=== PATIENT | female | born 1995 | race Caucasian/White ===

== ENCOUNTER 2018-08-14 09:49 | Outpatient (REF) | payer SELFPAY ==
[2018-08-14 09:52] VITALS: BP 121/76; PULSE 123; RESP 22; TEMP 36.6; O2SAT 100
--- NOTE | 2018-08-14 09:56 | ED.RN ---
PT STATES POSSIBLE ASSUALT. THIS RN HAD ANOTHER RN TO TRIAGE. TALKED WITH PT. PT NOW A JUICEE PT
--- NOTE | 2018-08-14 10:31 | ED.RN ---
pt moved to different status
[2018-08-14 13:56] LABS: Pregnancy, Serum, hCG Quali. NEGATIVE Negative (0-9 Nonpreg)
--- OUTSIDE RECORDS SUMMARY | 2018-09-06 10:30 | XMS RPT_ITS ---
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 learning more about the options, you can decide which method is right for you and your partner. If you are sexually active and don't want a baby, don't wait to use control. An unwanted can happen any time you have unprotected sex. IUD What is it? An IUD, or intrauterine device, is a small, plastic, flexible, T-shaped device that is placed into the uterus (womb). There two types of IUDs. One type, ParaGard?, can be kept in place for 10 years. (It contains copper, which stops the sperm from making it through the vagina and uterus to reach the egg, thus preventing fertilization.) Mirena? is an IUD that contains a small amount of hormone and is kept in place for 5 years. Huong? is similar but smaller and is good for 3 years. Mirena and Huong release the hormone progesterone, which causes the cervical mucus to become thicker so the sperm cannot reach the egg. The hormone also changes the lining of the uterus, so implantation of a fertilized egg cannot occur. How is it available? You must get a pelvic exam and your provider may check vaginal cultures. The IUD is placed into the uterus through the cervix during an exam in the office by a trained health care provider. How effective is it? The IUD is 99% effective. You should know: Side effects are different for the different IUDs. In some cases copper IUDs can cause more painful and heavy periods and backaches. Because Mirena? contains a hormone, periods are lightened and some women will have spotting or stop getting periods all together. It is normal to have 3 months of light spotting after insertion. IUDs should not be used if you have a recent history of pelvic infections or are at risk for infections. IUDs do not protect against sexually transmitted diseases (STDs), including HIV (the virus that causes AIDS). The male condom provides the best protection against most STDs. THE CONTROL PILL (ORAL CONTRACEPTIVE) How does it work? Pills work by thickening the cervical mucus so the sperm cannot reach the egg. The hormone in the pills also changes the lining of the uterus, so implantation of a fertilized egg cannot occur. In most cases, pills stop ovulation (the release of an egg). How is it used? A pill is taken at the same time every day. There are several different types of pills. Some are designed to allow the woman to have a period every month and others allow the women to have period every 3 months. You need to discuss which pill is best for you with your health care provider. How can I get it? The pill must be ordered for you by your health care provider. It is obtained by prescription. How effective is it? The pill is 99% effective, if taken correctly. However, up to 8% of women may get each year if they do not use it correctly. You should know: Certain medications, which your provider will discuss, cause the pill to lose effectiveness. You should use back-up control while taking these medications. The pill can cause minor side effects such as mood symptoms, breast tenderness, nausea and headaches. The hormones in pills can increase the risk of blood clots which usually form in the legs. This risk is higher in women who smoke. The pill is not recommended for women who are over 35 years of age and smoke, but can be used until menopause if you don't smoke cigarettes and are in good health. The Pill does not protect against STDs, including HIV (the virus that causes AIDS). VAGINAL RING (NuvaRing?) What is it? A small, flexible ring that slowly releases the hormones estrogen and progesterone into the bloodstream through the vaginal wall. It works to prevent the same ways as the pill. How is it used? A vaginal ring is inserted high into the vagina like a tampon. It stays in place for 3 weeks in a row. It is removed for a 1-week break - when the menstrual period occurs - before a new ring is inserted. How can I get it? Your health care provider must order the vaginal ring, which is obtained by prescription. How effective is it? The vaginal ring is 99% effective, if used correctly. However, if used incorrectly, up to 8% of women might get within 1 year. If the ring is removed for more than 3 hours, an additional form of control should be used. You should know: The vaginal ring can cause side effects similar to control pills. The vaginal ring does not protect against STDs, including HIV (the virus that causes AIDS). ORTHO EVRA -- ANDquot;THE PATCH'' What is it? A patch that prevents by delivering continuous levels of the hormones estrogen and progesterone transdermally (through the skin) and into the bloodstream. It works to prevent the same ways as the pill. How is it used? Ortho Evra is a 1?-inch square patch with hormones embedded in its adhesive layer. It is worn on the lower abdomen, buttocks or upper arm. One patch is worn continuously for 1 week and is replaced with a new patch on the same day of the week (patch change day) for a total of 3 weeks. No patch is worn during the fourth week (patch-free week), when the menstrual period occurs. Although the patch is designed to remain in place during bathing, showering and swimming, you should not apply lotion or oil on or near the patch site. How can I get it? Your health care provider must order the patch, which is obtained by prescription. You apply the patch yourself. How effective is it? The patch is about 99% effective, if used correctly. It is slightly less effective (92%) in women weighing more than 198 pounds. You should know: The patch can cause side effects similar to control pills and can cause an allergic reaction to the adhesive. Some studies have shown the patch delivers higher levels of the hormone estrogen and women may be at greater risk for blood clots.The patch does not protect against STDs, including HIV (the virus that causes AIDS). DEPO-PROVERA? What is it? Depo-Provera? is a form of the hormone progestin. How is it used? It is given as an injection into the woman's buttocks or arm. Each injection provides protection against for 12 weeks. How is it available? Depo-Provera must be ordered by a health care provider. It is given every 3 months, usually given at the doctor's office. How effective is it? Depo-Provera is 99% effective. You should know: Depo-Provera can cause side effects including mood changes, headaches, breast tenderness, irregular periods and weight gain. Fifty percent of women who use Depo-Provera for more than a year stop getting their periods while on the medication. Because of the risk of bone loss, your provider may recommend calcium supplements for women who use Depo-Provera. Depo-Provera does not protect against STDs, including HIV (the virus that causes AIDS). IMPLANTED HORMONE ? NEXPLANON? What is it? Nexplanon is a single plastic chivo (1.5 inches long) that is placed directly under the skin of the upper arm by a physician. It delivers the hormone progesterone slowly over a 3-year period. How can I get it? Nexplanon is placed by a physician who is certified in this procedure. How effective is it? It is greater than 99% effective You should know: The side effects are similar to Depo-Provera. Specific side effects include swelling and/or pain at time of placement, breakage or internal scarring of tissue. The device is effective for 3 years and can be removed at any time before if desired. MALE CONDOM What is it? The male condom, or ANDquot;rubber,ANDquot; is a thin covering made of latex, plastic or animal membrane that is rolled over an erect penis. The covering prevents semen, the fluid that contains sperm, from entering a woman's vagina. Latex condoms are best for most people. Use plastic (Quiana?) condoms if you or your partner is allergic to latex. Condoms made from animal skins may not provide good protection from sexually transmitted diseases (STDs). How is it used? The condom is rolled over the erect penis before sexual activity begins. If the condom does not have a built-in nipple, leave ?-inch of the condom free at the tip of the penis so that semen has a place to collect. A new condom must be used each time you have sex. The condom must be in place before the penis gets near the vagina. How can I get it? Condoms can be purchased at most drug stores. Condoms also are sold in vending machines in restrooms. How effective is it? About 15% of women will get each year when condoms are used. However, condoms can be more effective when they are used exactly as intended. You should know: Latex condoms provide the best protection -- although not 100% protection -- from STDs by preventing the infected area from coming into contact with the partner. Use only water-based lubricants, such as K-Y Jelly? or Astroglide?. Oil-based lubricants (Vaseline?) can cause condoms to leak or break. If a condom breaks, a woman is at increased risk of getting . She should see her health care provider and consider emergency contraception. FEMALE CONDOM What is it? The female condom is a lubricated polyurethane (plastic) tube that has a flexible ring at each end. One end of the tube is closed. How is it used? Before sexual activity begins, the woman inserts the condom into her vagina so that the closed end of the tube covers the cervix, and the other end slightly covers the labia (lips on the outside of the vagina). The condom blocks sperm from entering the womb. How can I get it? Like the male condom, the female condom is available at drug stores without a prescription. How effective is it? About 21% of women get each year despite using a female condom, but the condom can be more effective when used exactly as instructed. You should know: Female condoms provide some protection against STDs, but the male condom provides the best protection. SPERMICIDES What is it? Spermicides are foams, jellies, tablets, sponges or suppositories that a woman places in her vagina and up next to the cervix (the opening leading from the vagina to the womb) before sex. Spermicides block the cervix and paralyze the sperm, making them unable to travel into the womb. Some women who choose this method will also use a diaphragm (a round piece of flexible rubber with a rigid rim which is inserted with spermicide prior to sex). How is it used? The woman places the spermicide inside the vagina within 1 hour before intercourse. More spermicide must be used each time you have sex. Follow the directions on the package carefully. How can I get it? Spermicides can be bought at most drug stores. Be careful not to confuse them with feminine hygiene products, such as douche or lubricants. Diaphragms are fitted in your doctor's office and if you gain or lose more than 10-15 pounds you may need to be re-fitted. How effective is it? About 29% of women get each year despite using spermicides, but they can be more effective when used exactly as instructed. You should know: Do not douche after sex when using a spermicide. You can wear a feminine pad to absorb spermicide that comes out. Spermicides do not protect against some STDs, including HIV (the virus that causes AIDS). EMERGENCY CONTRACEPTION What is it? Emergency contraception -- also called Plan B?, Any?, Next Choice? or referred to as the ANDquot;morning after pillANDquot; -- is a form of control that may be used by women within 120 hours (5 days) of having unprotected sex. It is more effective when taken soon after unprotected intercourse. The most commonly used emergency contraception consists of two doses of hormone pills taken in one day 12 hours apart. How does it work? The pill may prevent by temporarily blocking eggs from being produced, by stopping fertilization or keeping a fertilized egg from becoming implanted in the uterus. How is it available? Plan B can be purchased at a pharmacy without a prescription. For those under 17, a health care provider must order the medication. All pharmacies do not have to carry it, so you can sometimes search ahead of time which pharmacy is likely to carry it. See the website: www.ec-help.org. How effective is it? Plan B is about 90% effective when take within 72 hours of unprotected intercourse. Any is slightly more effective. You should know: Plan B is generally reserved for emergency situations and is not a regular method of control. Emergencies include being raped, having a condom break or slip off during sex, missing two or more control pills during a monthly cycle and having unplanned sex. ABSTINENCE Abstinence is also the best way to protect you against STDs. You may not be ready to have sex. Don't let someone pressure you into having sex if you don't feel ready. It is an important decision with serious emotional and physical consequences. Reference Centers for Disease Control: [place] medical eligibility criteria for contraceptive use. www.CDC.gov. Updated 08/03 Tejal Sanchez 10/05/2017 10:07 AM Signed pap logged. letter sent. Tejal Sanchez Referring Provider: SELF [[id number]] Allergies As of Date: 09/24/2017 (No Known Allergies) Date Reviewed: 09/24/2017 Reviewed by: Adina Miller - Fully Assessed Primary Visit Diagnosis:Encounter for gynecological examination (general) (routine) without abnormal findings [Z01.419] Other Visit Diagnoses:Screening for cervical cancer [Z12.4] Encounter for screening for human papillomavirus (HPV) [Z11.51] Screen for STD (sexually transmitted disease) [Z11.3] Order(s):PAP FLUID CERVICAL SCREENING [3252406] Order #: [id number]. #:[id number] GC/CHLAMYDIA DNA DET [SQGCCAMP] Order #: [id number]. #:[id number] Prescriptions as of 09/24/2017 Sig: LEVONORGESTREL-ETHINYL ESTRAD* Take 1 tablet by mouth once d* MULTIVITAMIN TABLET Take 1 tablet by mouth once d* IBUPROFEN 200 MG TABLET Take 1-2 tablets by mouth deven* Problem List As Of Date: 09/24/2017 (None) Other instructions from your clinician: Control Options control is a way for men and women to prevent . There are many different methods of control. By learning more about the options, you can decide which method is right for you and your partner. If you are sexually active and don't want a baby, don't wait to use control. An unwanted can happen any time you have unprotected sex. IUD What is it? An IUD, or intrauterine device, is a small, plastic, flexible, T-shaped device that is placed into the uterus (womb). There two types of IUDs. One type, ParaGard?, can be kept in place for 10 years. (It contains copper, which stops the sperm from making it through the vagina and uterus to reach the egg, thus preventing fertilization.) Mirena? is an IUD that contains a small amount of hormone and is kept in place for 5 years. Huong? is similar but smaller and is good for 3 years. Mirena and Huong release the hormone progesterone, which causes the cervical mucus to become thicker so the sperm cannot reach the egg. The hormone also changes the lining of the uterus, so implantation of a fertilized egg cannot occur. How is it available? You must get a pelvic exam and your provider may check vaginal cultures. The IUD is placed into the uterus through the cervix during an exam in the office by a trained health care provider. How effective is it? The IUD is 99% effective. You should know: Side effects are different for the different IUDs. In some cases copper IUDs can cause more painful and heavy periods and backaches. Because Mirena? contains a hormone, periods are lightened and some women will have spotting or stop getting periods all together. It is normal to have 3 months of light spotting after insertion. IUDs should not be used if you have a recent history of pelvic infections or are at risk for infections. IUDs do not protect against sexually transmitted diseases (STDs), including HIV (the virus that causes AIDS). The male condom provides the best protection against most STDs. THE CONTROL PILL (ORAL CONTRACEPTIVE) How does it work? Pills work by thickening the cervical mucus so the sperm cannot reach the egg. The hormone in the pills also changes the lining of the uterus, so implantation of a fertilized egg cannot occur. In most cases, pills stop ovulation (the release of an egg). How is it used? A pill is taken at the same time every day. There are several different types of pills. Some are designed to allow the woman to have a period every month and others allow the women to have period every 3 months. You need to discuss which pill is best for you with your health care provider. How can I get it? The pill must be ordered for you by your health care provider. It is obtained by prescription. How effective is it? The pill is 99% effective, if taken correctly. However, up to 8% of women may get each year if they do not use it correctly. You should know: Certain medications, which your provider will discuss, cause the pill to lose effectiveness. You should use back- up control while taking these medications. The pill can cause minor side effects such as mood symptoms, breast tenderness, nausea and headaches. The hormones in pills can increase the risk of blood clots which usually form in the legs. This risk is higher in women who smoke. The pill is not recommended for women who are over 35 years of age and smoke, but can be used until menopause if you don't smoke cigarettes and are in good health. The Pill does not protect against STDs, including HIV (the virus that causes AIDS). VAGINAL RING (NuvaRing?) What is it? A small, flexible ring that slowly releases the hormones estrogen and progesterone into the bloodstream through the vaginal wall. It works to prevent the same ways as the pill. How is it used? A vaginal ring is inserted high into the vagina like a tampon. It stays in place for 3 weeks in a row. It is removed for a 1-week break - when the menstrual period occurs - before a new ring is inserted. How can I get it? Your health care provider must order the vaginal ring, which is obtained by prescription. How effective is it? The vaginal ring is 99% effective, if used correctly. However, if used incorrectly, up to 8% of women might get within 1 year. If the ring is removed for more than 3 hours, an additional form of control should be used. You should know: The vaginal ring can cause side effects similar to control pills. The vaginal ring does not protect against STDs, including HIV (the virus that causes AIDS). ORTHO EVRA -- THE PATCH'' What is it? A patch that prevents by delivering continuous levels of the hormones estrogen and progesterone transdermally (through the skin) and into the bloodstream. It works to prevent the same ways as the pill. How is it used? Ortho Evra is a 1?-inch square patch with hormones embedded in its adhesive layer. It is worn on the lower abdomen, buttocks or upper arm. One patch is worn continuously for 1 week and is replaced with a new patch on the same day of the week (patch change day) for a total of 3 weeks. No patch is worn during the fourth week (patch-free week), when the menstrual period occurs. Although the patch is designed to remain in place during bathing, showering and swimming, you should not apply lotion or oil on or near the patch site. How can I get it? Your health care provider must order the patch, which is obtained by prescription. You apply the patch yourself. How effective is it? The patch is about 99% effective, if used correctly. It is slightly less effective (92%) in women weighing more than 198 pounds. You should know: The patch can cause side effects similar to control pills and can cause an allergic reaction to the adhesive. Some studies have shown the patch delivers higher levels of the hormone estrogen and women may be at greater risk for blood clots.The patch does not protect against STDs, including HIV (the virus that causes AIDS). DEPO-PROVERA? What is it? Depo-Provera? is a form of the hormone progestin. How is it used? It is given as an injection into the woman's buttocks or arm. Each injection provides protection against for 12 weeks. How is it available? Depo-Provera must be ordered by a health care provider. It is given every 3 months, usually given at the doctor's office. How effective is it? Depo-Provera is 99% effective. You should know: Depo-Provera can cause side effects including mood changes, headaches, breast tenderness, irregular periods and weight gain. Fifty percent of women who use Depo-Provera for more than a year stop getting their periods while on the medication. Because of the risk of bone loss, your provider may recommend calcium supplements for women who use Depo-Provera. Depo-Provera does not protect against STDs, including HIV (the virus that causes AIDS). IMPLANTED HORMONE ? NEXPLANON? What is it? Nexplanon is a single plastic chivo (1.5 inches long) that is placed directly under the skin of the upper arm by a physician. It delivers the hormone progesterone slowly over a 3-year period. How can I get it? Nexplanon is placed by a physician who is certified in this procedure. How effective is it? It is greater than 99% effective You should know: The side effects are similar to Depo- Provera. Specific side effects include swelling and/or pain at time of placement, breakage or internal scarring of tissue. The device is effective for 3 years and can be removed at any time before if desired. MALE CONDOM What is it? The male condom, or rubber, is a thin covering made of latex, plastic or animal membrane that is rolled over an erect penis. The covering prevents semen, the fluid that contains sperm, from entering a woman's vagina. Latex condoms are best for most people. Use plastic (Quiana?) condoms if you or your partner is allergic to latex. Condoms made from animal skins may not provide good protection from sexually transmitted diseases (STDs). How is it used? The condom is rolled over the erect penis before sexual activity begins. If the condom does not have a built-in nipple, leave ?-inch of the condom free at the tip of the penis so that semen has a place to collect. A new condom must be used each time you have sex. The condom must be in place before the penis gets near the vagina. How can I get it? Condoms can be purchased at most drug stores. Condoms also are sold in vending machines in restrooms. How effective is it? About 15% of women will get each year when condoms are used. However, condoms can be more effective when they are used exactly as intended. You should know: Latex condoms provide the best protection -- although not 100% protection -- from STDs by preventing the infected area from coming into contact with the partner. Use only water-based lubricants, such as K-Y Jelly? or Astroglide?. Oil-based lubricants (Vaseline?) can cause condoms to leak or break. If a condom breaks, a woman is at increased risk of getting . She should see her health care provider and consider emergency contraception. FEMALE CONDOM What is it? The female condom is a lubricated polyurethane (plastic) tube that has a flexible ring at each end. One end of the tube is closed. How is it used? Before sexual activity begins, the woman inserts the condom into her vagina so that the closed end of the tube covers the cervix, and the other end slightly covers the labia (lips on the outside of the vagina). The condom blocks sperm from entering the womb. How can I get it? Like the male condom, the female condom is available at drug stores without a prescription. How effective is it? About 21% of women get each year despite using a female condom, but the condom can be more effective when used exactly as instructed. You should know: Female condoms provide some protection against STDs, but the male condom provides the best protection. SPERMICIDES What is it? Spermicides are foams, jellies, tablets, sponges or suppositories that a woman places in her vagina and up next to the cervix (the opening leading from the vagina to the womb) before sex. Spermicides block the cervix and paralyze the sperm, making them unable to travel into the womb. Some women who choose this method will also use a diaphragm (a round piece of flexible rubber with a rigid rim which is inserted with spermicide prior to sex). How is it used? The woman places the spermicide inside the vagina within 1 hour before intercourse. More spermicide must be used each time you have sex. Follow the directions on the package carefully. How can I get it? Spermicides can be bought at most drug stores. Be careful not to confuse them with feminine hygiene products, such as douche or lubricants. Diaphragms are fitted in your doctor's office and if you gain or lose more than 10-15 pounds you may need to be re-fitted. How effective is it? About 29% of women get each year despite using spermicides, but they can be more effective when used exactly as instructed. You should know: Do not douche after sex when using a spermicide. You can wear a feminine pad to absorb spermicide that comes out. Spermicides do not protect against some STDs, including HIV (the virus that causes AIDS). EMERGENCY CONTRACEPTION What is it? Emergency contraception -- also called Plan B?, Any?, Next Choice? or referred to as the morning after pill -- is a form of control that may be used by women within 120 hours (5 days) of having unprotected sex. It is more effective when taken soon after unprotected intercourse. The most commonly used emergency contraception consists of two doses of hormone pills taken in one day 12 hours apart. How does it work? The pill may prevent by temporarily blocking eggs from being produced, by stopping fertilization or keeping a fertilized egg from becoming implanted in the uterus. How is it available? Plan B can be purchased at a pharmacy without a prescription. For those under 17, a health care provider must order the medication. All pharmacies do not have to carry it, so you can sometimes search ahead of time which pharmacy is likely to carry it. See the website: www.ec-help.org. How effective is it? Plan B is about 90% effective when take within 72 hours of unprotected intercourse. Any is slightly more effective. You should know: Plan B is generally reserved for emergency situations and is not a regular method of control. Emergencies include being raped, having a condom break or slip off during sex, missing two or more control pills during a monthly cycle and having unplanned sex. ABSTINENCE Abstinence is also the best way to protect you against STDs. You may not be ready to have sex. Don't let someone pressure you into having sex if you don't feel ready. It is an important decision with serious emotional and physical consequences. Reference Centers for Disease Control: US medical eligibility criteria for contraceptive use. www.CDC.gov. Updated 08/03 Disposition: Return in 1 year (on 09/24/2018), or if symptoms worsen or fail to improve, for Annual Exam. Follow-up and Disposition History Recorded Letter Text [facility] [address], [place] [address] Louis Tenorio [address] [id number] 10/05/2017 [facility]: [id number] Dear Louis, We are pleased to inform you that your recent Pap Test was within normal limits. Because Pap tests are so effective in the early detection of cervical cancer, you are encouraged to continue having the test at regular intervals. You will be due for a 1 year Gynecological Exam after this date 09/24/2018. If you have any questions regarding the above information, do not hesitate to call our office at between the hours of 8:00 a.m. and 5:00 p.m. Sincerely, Adina Miller CNM Encounter Status:Closed by ADINA MILLER CNM on 09/24/17 PROGRESS Observed: 09/24/2017 Status: COMPLETED Source: [place] 1:55 PM [facility] REPOSITORY O ID: [id number] Author: Adina Miller Service: (none) Author Type: Returned Case Inspector Type: Progress Notes Filed: 09/24/2017 5:40 PM Note Text: Louis Tenorio is a 21 year old who presents for her annual gynecologic exam with complaints, pelvic pain. Menses: cycles every 28-30 days and 3-5 days of flow. Contraception: oral contraceptives HPV vaccine: Yes Last Pap: never N/A HPV: N/A History of abnormal pap: No Last mammogram: never Sexually active: Yes History of STDS: None Patient concerns for STD exposure: No. Last sexual contact: Many months ago History of fibroids: No History of ovarian cyst: No History of endometriosis: No History of infertility: No History of PCOS: No History of obstetrics and gynecology professor malignancy: No Pain with intercourse: Yes Postcoital bleeding: No Exercise: 5-7 times a week for 60-90 minutes. Type: Gym, Running Diet: Regular Seatbelt use: Yes Obstetric History T0 L0 SAB0 TAB0 Ectopic0 Multiple0 Live Births0 PAST MEDICAL HISTORY Diagnosis Date - Chickenpox 1999 preschool. PAST SURGICAL HISTORY Procedure Laterality Date - EXTRACTION ERUPTED TOOTH/EXR 01/2016 FAMILY HISTORY Problem Relation Age of Onset - Heart Maternal Grandmother - Diabetes Maternal Grandmother - Prostate Cancer Maternal Grandfather - Asthma Paternal Aunt - Breast Cancer Maternal Aunt - Diabetes Maternal Aunt Several of mom's sibs. - Colon Cancer Other great grandmother, great aunt - Cancer Maternal Aunt larynx. - Thyroid Sister Maternal side of family SOCIAL HISTORY Social History Substance Use Topics - Smoking status: Never Smoker - Smokeless tobacco: Never Used - Alcohol use Yes Comment: social REVIEW OF SYSTEMS Abdomen: No abdominal pain, nausea, vomiting, diarrhea, or constipation. No bloating, early satiety, indigestion, or increased flatulence. Bladder: No dysuria, gross hematuria, urinary frequency, urinary urgency, or incontinence. Breast: No breast lumps, nipple d/c, overlying skin changes, redness or skin retraction. Allergies and current medication updated:Yes EXAM: BP 92/64 Ht 5' 5 (1.65m) Wt 132 lb (59.9kg) LMP 09/10/2017 BMI 21.97 kg/(m2). GENERAL: pleasant, female in no apparent distress HEENT: Normocephalic, atraumatic, mucus membranes moist and no lesions NECK: Supple, full range of motion, no adenopathy and thyroid normal DERMATOLOGY: Normal, without lesions, non-icteric and non-hirsute BREAST: soft, non-tender, symmetric, no dominant mass, normal nipple-areolar complex, no lymphadenopathy and no nipple discharge CHEST: Normal inspiratory effort ABDOMEN: soft, non-tender and no masses PELVIC: external genitalia normal, normal Bartholin's glands, urethra, Huey's glands, no vulvar lesions, no cervical lesions, good vaginal support, physiologic discharge present, normal appearing perineal body and perianal region BIMANUAL: uterus normal size, shape and consistency, no adnexal masses and non-tender RECTOVAGINAL: deferred. NEURO: alert and oriented x3,exam grossly non-focal EXTREMITIES: normal ASSESSMENT/PLAN: 1) Health maintenance: Pap done with reflex HPV. Nutrition, exercise and routine health maintenance exams reviewed. Calcium/Vitamin D supplementation information provided. Smoking cessation: Patient does not smoke. Lipids/glucose: followed by PCP Vitamin D: followed by PCP HPV vaccine: completed series 2) Contraception: oral contraceptives - ACHES precautions reviewed. Contraceptive options reviewed and information provided - list given. If patient desires to change Control Options she will contact our office. 3) STD screening: Accepted STD check for Gonorrhea and Chlamydia. 4) Follow up one year or sooner as needed Adina Miller CNM ALLERGIES ALLERGIES DATE TYPE / CODE NAME / CODE REACTION SEVERITY SOURCE 06/08/2017 Drug No Known Unknown [facility] [place] [facility] Allergy/416 Allergies/[id number] Hospital [id number](SNOM 0388(RXNORM) Repository ED CT) Drug NO KNOWN [facility] Class/21584 ALLERGIES [place] 1003(SNOMED Repository CT) ENCOUNTERS ENCOUNTERS ADMIT/DISCHARGE ACCOUNT ADMITTING ENCOUNTER LOCATION SOURCE NUMBER CLASS 08/17/2018/08/17/[id number] Repository 08/14/2018/08/14/[id number] ing:EDREF Repository 08/14/2018 [id number] [facility] ing:ED Repository 08/01/2018/08/02/20 [id number] Ambulatory [address] Repository 04/18/2018/04/19/20 [id number] Ambulatory [address] Repository 12/11/2017/12/12/19 [id number] Ambulatory [address] Repository 10/25/2017/10/26/19 [id number] Ambulatory [address] Repository 09/24/2017/09/27/19 [id number] Ambulatory [address] Repository PAYERS PAYERS ENCOUNTER GUARANTOR PAYER SUBSCRIBER SOURCE 08/14/2018 Primary NOT GIVENUNK Jb Insurance:SELF PAY [facility] Number: Effective Repository Date:2018-08-14 08/14/2018 Louis Solomon Primary TANIYA BLOUGHDOB: [place] [id number] Back Insurance:[id number]: [place], [place] [id number] Repository [address]Ufh: [phone] Date:[id number] [phone] ([facility] [id number], [place] [address]QD: 08/14/2018 Secondary NOT GIVENUNK [place] Insurance:SELF PAY [facility] Number: Effective Repository Date:2018-08-14
== END 2018-08-14 16:00 | disposition home or self-care (01) ==
LOC: EDREF 12:12
PROVIDERS: Emergency Medicine
DX: Z04.41 Encounter for examination and observation following alleged adult rape (principal)
CPT/HCPCS: 84703; J2405

== ENCOUNTER 2018-09-18 10:49 | Emergency (ER) | payer OTHER, SELFPAY ==
[2018-09-18 10:50] VITALS: BP 117/79; PULSE 97; RESP 17; TEMP 36.8; O2SAT 99; BMI 22.0
[2018-09-18 11:51] LABS: Absolute Lymphocyte Count 1.56 X10^3/ul (0.83-4.51); Absolute Neutrophil Count 1.8 X10^3/uL (2.0-7.7); Basophil# 0.02 X10^3/uL; Basophil% 0.5 % (0-1); Eosinophil# 0.12 X10^3/uL; Eosinophils% 2.9 % (0-5); Hematocrit 36.4 % (37-47); Hemoglobin 11.7 g/dl (12.0-15.0); Lymphocyte # 1.56 X10^3/ul (4.0); Lymphocyte % 38.1 % (19-41); Mean Corp Hgb Conc 32.1 g/gl (32-36); Mean Corpuscular Hgb 28.2 pg (27.0-32.0); Mean Corpuscular Volume 87.7 fL (81-99); Mean Platelet Vol. 9.6 fl (6.2-12.0); Monocyte# 0.56 X10^3/uL; Monocyte% 13.7 % (0-10); Neutrophil # 1.82 X10^3/uL (2.7-7.7); Neutrophil % 44.6 % (47-70); Platelet Count 199 K/mm3 (150-450); RBC Distribution Width CV 14.6 % (11.6-14.6); RBC Distribution Width SD 46.1 fl (35.1-43.9); Red Blood Count 4.15 M/mm3 (4.2-5.4); White Blood Count 4.1 K/mm3 (4.4-11.0)
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
[2018-09-18 11:54] LABS: POSITIVE COUNT NO; POSITIVE DIFFERENTIAL NO; POSITIVE MORPHOLOGY NO
[2018-09-18 12:03] LABS: Anion Gap 7 (5-15); BUN 8 mg/dL (7-18); BUN/Creat Ratio 10.6 RATIO (10-20); Calcium,Total 8.6 mg/dL (8.5-10.1); Chloride 107 mmol/L (98-107); Creatinine, Serum 0.75 mg/dL (0.55-1.02); EST Glomerular Filtration Rate 101 mL/min (>60); Est Glom Filt Rate - Afr Amer 123 mL/min (>60); Estimated Creatinine Clearance 105.87 ml/min; Glucose 85 mg/dL (74-106); Potassium 3.8 mmol/L (3.5-5.1); Sodium Level 142 mmol/L (136-145)
[2018-09-18 12:13] LABS: Pregnancy, Serum, hCG Quali. NEGATIVE Negative (0-9 Nonpreg)
[2018-09-18 12:21] LABS: Alcohol, Blood (Medical)-Serum < 3.0 mg/dL
[2018-09-18 13:46] LABS: Amphetamine Urine VISTA NEGATIVE (<1000 ng/mL); Barbiturate Urine VISTA NEGATIVE (< 200 ng/mL); Benzodiazepine Urine VISTA NEGATIVE (< 200 ng/mL); Cocaine Urine VISTA NEGATIVE (< 300 ng/mL); Ecstacy Urine VISTA NEGATIVE (< 500 ng/mL); Methadone Urine VISTA NEGATIVE (< 300 ng/mL); PCP Urine VISTA NEGATIVE (< 25 ng/mL); THC Urine VISTA POSITIVE (< 50 ng/mL); Vista UDS pH Range 7
[2018-09-18 14:42] VITALS: BP 113/81; PULSE 84; RESP 16; O2SAT 100
== END 2018-09-18 14:43 | disposition home or self-care (01) ==
PROVIDERS: Emergency Provider Emergency Medicine; Family Provider Internal Medicine; PCP Internal Medicine
DX: F32.9 Major depressive disorder, single episode, unspecified (principal); F12.90 Cannabis use, unspecified, uncomplicated; F41.9 Anxiety disorder, unspecified
CPT/HCPCS: 80048; 80307; 80320; 84703; 85025; 99282; G0480

== ENCOUNTER 2018-09-19 11:48 | Emergency (ER) | payer OTHER, SELFPAY ==
[2018-09-18 10:50] VITALS: BMI 22.0
[2018-09-19 11:48] VITALS: BP 138/91; PULSE 109; RESP 16; TEMP 36.9; O2SAT 99; BMI 21.6
--- NOTE | 2018-09-19 12:39 | ED.RN ---
[place] WITH CRISIS I WILL NOT BE ABLE TO BE THERE UNTIL 1500
--- NOTE | 2018-09-19 15:52 | ED.RN ---
social services analyst spoke with pt. set pt up with resources no longer need fr crisis counsoler to see per SW
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
[2018-09-19 16:37] VITALS: BP 130/89; PULSE 71; RESP 16; O2SAT 100
--- NOTE | 2018-09-21 11:14 | CM.ED ---
SOCIAL WORK NOTE VOICEMAIL RECEIVED FROM NICK WITH [facility]. RETURNED CALL. PER NICK, PT WAS AT [facility] THIS MORNING. PT'S NEXT APPOINTMENT IS 10/05/18 AT 3:15P. PT RECEIVED UPDATE FROM [facility], PT IS IN REGISTRATION REQUESTING TO SPEAK WITH THIS WORKER. THIS WORKER TO FOLLOW UP. MARIAM THRASHER, ROVER TENDER, SHOP WORKER.
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
== END 2018-09-19 16:38 | disposition home or self-care (01) ==
PROVIDERS: Emergency Provider Emergency Medicine; Family Provider Internal Medicine; PCP Internal Medicine
DX: R11.0 Nausea (principal); F41.9 Anxiety disorder, unspecified
CPT/HCPCS: 99282

== ENCOUNTER 2018-09-22 10:28 | Outpatient (RCR) | payer OTHER, SELFPAY ==
--- NOTE | 2018-09-22 10:10 | BH.SGPN.GN ---
Behaviors/Verbalizations/Mental Status: []Client alert and oriented, disheveled appearance. Eye contact good. Motor activity appropriate. Speech within normal limits, but client laughing at inappropriate times. Affect bright, mood euthymic. Thoughts linear, logical, no signs of hallucinations or delusions. Client Response/Progress/Benefit: []Client responded well to session, participating when prompted. Client reported taking action to her means moving towards goals and being resilient, ?you never know how strong you are until you have to be.? Client shared there are numerous barriers that prevent people from taking action such as lack of support and comfort zones. Client identified things holding client back from improved mental wellness such as marijuana, desire to use maladaptive coping, need for instant gratification, and trying to please ?everyone.? Client stated her mental wellness would improve if she could let go of these barriers. Client engaged in the activity symbolizing the ability to let go of the things holding client back and appeared to benefit from emotional release and gaining awareness of personal barriers. Client stated the activity was ?empowering.? Client?s first day, no progress to document at this time.
--- NOTE | 2018-09-22 11:17 | BH.SGPN.GN ---
Behaviors/Verbalizations/Mental Status: [Client alert and oriented. Appearance is casual ? wearing hoop nose ring and hair appearing dirty. Eye contact is good. Motor activity WNL. Speech appropriate rate and tone. Affect blunted. Mood dysthymic, anxious. Thoughts appearing disconnected or off topic at times and client appearing to have difficulty remaining focused or comprehending information discussed, no signs of hallucinations or delusions.] Client Response/Progress/Benefit: [Client engaged, provided input to the group and did well to actively contribute suggestions to the group; however, began to struggle maintaining focused and attentive nearing end of group. CLient expressed struggling with ?zoning out?. She benefitted from reflecting with the group on the importance of taking small actionable steps towards addressing barriers and making notable changes in her life. Client noted that for her she struggle with knowing what steps to take or what she wants to begin changing. She did well to work with the group on completing a 30 Days to Change Action Plan worksheet. Client was able to reflect further and identified wanting to make strides towards no longer isolating. Client shared that two small steps towards this goal she plans to take in the next 30 Days include: getting out of the house by going to a yoga class, and practicing healthy boundary setting. Progress noted in her ability to engage in group despite it being her first day. Recommended continued IOP tx to promote healthy coping, improve self-talk, and decrease depressive sx] Narrative Note: []
--- NOTE | 2018-09-23 09:05 | BH.SGPN.GN ---
Behaviors/Verbalizations/Mental Status: [Eye contact is good - tearful in discussing current mood and stressors. Motor activity appropriate. Appearance casual and appearing to be placing more effort in appearance than previous date AEB client wearing business casual attire. Speech Appropriate rate and tone. Mood overwhelmed, depressed. Affect is congruent. Thoughts linear, evidence of rumination regarding feelings of guilt and overwhelming stressors. No evidence of delusions or hallucinations. Reviewed daily check in sheet and no reports of suicidal ideations or intent.] Client Response/Progress/Benefit: [Client receptive of session, providing limited input throughout though nodded in agreement and noted relating to fellow participants. She indicated current mood as ?overwhelmed? and went on to share feelings of guilt and anxiety, as well as sadness related to her difficulties in managing current stressors. Client shared a positive as coming to IOP group despite feeling as though asking for help means she is weak. Receptive of challenging this distortion and progress shown in her ability to reframe. Additional positive noted as being willing to reach out for help. Client shared a current stressor as her brother leaving tomorrow and client wishing she had spent more time with him. She benefited from the support of the group and working with participants on identifying ways she can spend time with her brother prior to his leaving. Client recommended continued IOP tx to improve ability to identify and begin using healthy means of coping, challenge distorted thought patterns, and prevent decompensating.] Narrative Note: []
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
--- NOTE | 2018-09-23 15:10 | BH.DR.ITP ---
Initial Treatment Plan - Patient Information Visit Information: ADMISSION DATE: 09/22/18 EXPECTED LOS: 4-6 weeks Diagnoses:: persistent depressive disorder - Problems/Symptoms Problem #1:: depression Symptom:: negative self-talk; passive thoughts of ; poor self-esteem Problem #2:: anxiety Symptom:: chronic worry, no coping skills Problem #3:: borderline personality disorder Symptom:: moodiness, impulsivity, relationship problems
--- NOTE | 2018-09-26 09:10 | BH.SGPN.GN ---
Behaviors/Verbalizations/Mental Status: [] Eye contact is good. Motor activity is appropriate. Appearance is casual. Speech is Appropriate. Mood is anxious. Affect is congruent. Thoughts are linear and logical. No evidence of psychosis. Reviewed daily check in sheet and no reports of suicidal ideations or intent. Client Response/Progress/Benefit: [] Pt was an active participant in group discussion. Emotion for today is apprehensive. Pt reports that she is doing better since last week however believes that this means that something bad will happen. Reports that she has gone back to synagogue and also has started exercising again which she reports is very helpful for her motivation and emotions. States this weekend went well and she is eating and sleeping better. Also reports decrease in anxiety. Began to complete her 30 day challenge goals as well. Continues to ruminate at time on poor decisions and regression over the past month. Progress noted per pt. Will continue in IOP to maintain safety, prevent decompensation, and stabilize emotions. Narrative Note: []
--- NOTE | 2018-09-26 10:10 | BH.SGPN.GN ---
Behaviors/Verbalizations/Mental Status: [Client eye contact good, casually dressed -wearing athletic clothing, motor activity appropriate at times restless AEB walking around room, speech normal rate and tone, mood euthymic, congruent affect, thoughts linear and intact, no evidence of delusions or hallucinations.] Client Response/Progress/Benefit: [Client receptive of session and did well to contribute to discussion AEB providing input on importance of communication and asking questions. Client connected with the quote and shared that making assumptions has resulted in her shutting down and avoiding communicating with others for fear of rejection. She benefitted from discussion about the four different types of communication (passive, passive-aggressive, aggressive, and assertive). Client able to identify benefits and costs to each type of communication. Identified that finds assertive communication to be difficult as she does not want to disappoint anyone or always know how to communicate her needs. Progress noted in ability to connect with materials discussed and begin internalizing content. Continued treatment to maintain stability and improve self-talk, as well as better manage emotions.] Narrative Note: []
--- NOTE | 2018-09-26 11:14 | BH.SGPN.GN ---
Behaviors/Verbalizations/Mental Status: []Client alert and oriented, casual dress, hygiene good. Eye contact good. Motor activity appropriate. Speech within normal limits. Affect incongruent as shown by client smiling while reporting anxiety about the activity, mood anxious. Thoughts linear, logical, no signs of hallucinations or delusions. Client Response/Progress/Benefit: []Client responded well to session, positive contributions, but declining to participate in activity. Client reported she often uses passive and passive-aggressive communication. Client shared her communication style formed as a protection mechanism, but not sharing her needs has led to ?things building up.? Client reported her mood and stress level impacts how she communicates. Client declined to participate in one of the activity roles because ?It will just piss me off because I won?t get it.? Client was gently challenged by jump iron machine presser and although she did not draw in the activity, she challenged herself to provide verbal input. Client helped the group identify strategies to improve communication such as writing out needs, taking a break when needed, and managing stress. Client appeared to benefit from gaining awareness of distortions that impact her ability to effectively communicate. Progress limited as client recently started IOP. However, client appears to be connecting with peers and the group topics which is positive.
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
--- NOTE | 2018-09-29 09:00 | BH.COMM ---
Communication Note - Communication with Client Communication Note: Pt called in to cancel due to weather.
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
--- NOTE | 2018-10-05 09:05 | BH.SGPN.GN ---
Behaviors/Verbalizations/Mental Status: []Client alert and oriented, disheveled appearance, hygiene fair. Eye contact good. Motor activity appropriate. Speech within normal limits. Affect congruent, mood anxious, overwhelmed. Thoughts linear, logical, no signs of hallucinations or delusions. Reviewed client?s symptom tracker no risk in suicidal ideation, plan, and intent as of 10/05/18. Client Response/Progress/Benefit: []Client responded well to session, receptive and providing feedback. Client reported ?this morning I was feeling agitated and sad, but now I feel more hopeful.? Client reported being around supportive people in group has helped client return to baseline. Client shared her current stressor is money and ?things not going as I expected.? Client stated she had originally planned to work and go to school this semester, but her mental health became worse so she came to [facility] instead. Client acknowledges high expectations of self and independence that cause client to feel guilty and judgmental towards herself. Client received supportive statements from peers reassuring client it is okay to ask for help and challenge expectations. Therapist also reminded client the importance of validating her own emotions. Client identified her current mental health positives as having family support ?remember what I have? and coming to IOP today as she almost did not come. Client appeared to benefit from connecting with peers. Progress noted as client reports willingness to talk with her mom about boundaries and mental health needs. Client to continue IOP as she continues to struggle with emotional regulation and negative thinking.
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
--- NOTE | 2018-10-05 10:15 | BH.SGPN.GN ---
Behaviors/Verbalizations/Mental Status: [] Eye contact is good. Motor activity is appropriate. Appearance is casual. Speech is Appropriate. Mood is euthymic. Affect is full. Thoughts are linear and logical. No evidence of psychosis. Client Response/Progress/Benefit: [] Pt was an active participant in group discussion and activity. Worked with peers to define resilience. According to group discussion resilience is; having strength, coming back from something tough, and recovering from an negative event. Group discussed the role of resilience in mental health and the factors that build resilience. Group was mainly psycho-educational and the group reviewed the 10 steps to resilience handout. Pt was attentive and engaged offering feedback when appropriate. Benefited by increasing insight and awareness of resilience and its role in mental health. Will continue in IOP to stabilze mood, increase functioning to return to school/work, and increase coping skills. Narrative Note: []
--- NOTE | 2018-10-05 11:19 | BH.SGPN.GN ---
Behaviors/Verbalizations/Mental Status: [Client eye contact good, casually dressed wearing athletic clothing, motor activity appropriate, speech normal rate and tone, mood euthymic and reflective, congruent affect, thoughts linear and logical, no evidence of delusions or hallucinations.] Client Response/Progress/Benefit: [Client active participant throughout AEB engaging in group discussion and providing insight to the group. When processing the various benefits of each resilience factor, client identified that ?self-Awareness? is important to prevent things from building or getting worse. Provided example of avoiding potentially unhealthy people or places. Client benefited from discussion focused on strategies to implement the various factors of resilience in daily life. Client did well in working with her small group to identify what resilience factor she can would like to begin strengthening. Client shared wanting to focus on ?Making connections? and shared that proactively making plans with healthy supports is a small step she can take in doing so. Client reflected that this will allow her to be less likely to seek toxic supports. Client to continue IOP level of care to maintain stability, promote healthy change behaviors, and prevent decompensation.] Narrative Note: []
--- NOTE | 2018-10-06 09:38 | BH.COMM ---
Communication Note - Communication with Client Communication Note: Pt no showed/no called IOP today. IOP therapist attempted to contact pt to check-in, however this keno writer / runner could not leave a message due to the pt's voicemail box being full.
--- NOTE | 2018-10-06 14:09 | BH.COMM ---
Communication Note - Communication with Client Communication Note: This underwriter solicitation director contacted pt via phone and pt apologized for not making it to IOP today. Pt reported she overslept and forgot to call in to let us know. Pt stated she will attend IOP tomorrow.
--- NOTE | 2018-10-06 14:13 | BH.COMM_ITS ---
Communication Note - Communication with Client Communication Note: This copy writer contacted pt via phone and pt apologized for not making it to IOP today. Pt reported she overslept and forgot to call in to let us know. Pt stated she will attend IOP tomorrow.
--- NOTE | 2018-10-07 09:03 | BH.SGPN.GN ---
Behaviors/Verbalizations/Mental Status: [Eye contact is good. Motor activity WNL. Appearance casual and comfortable. Speech Appropriate rate and tone. Mood euthymic, anxious. Affect is congruent. Thoughts linear and logical. No evidence of delusions or hallucinations. Reviewed daily check in sheet and no reports of suicidal ideations or intent] Client Response/Progress/Benefit: [Client receptive of session, providing input and feedback to the group. Indicated current mood as ?content? which client reflected as being an improvement since Wednesday. She indicated that earlier in the week she had been struggling with finances and that this had impacted her mood. Client went on to share that a major positive was being able to reach out to her supports and secure the funds she needed to budget appropriately. This is progress as client has previously expressed asking for help feels like a sign of weakness and loss of independence. Client did well to identify and challenge these previous beliefs. Client additionally shared plans to begin reading her new book ?[employer]ly?, a book about finding and harnessing gratitude. Client indicated that hearing other stories of success helps improve her motivation to personally succeed as well. CLient expressed fears of regressing and backtracking in terms of her mental health management. She did well to challenge these thoughts and is recommended continued IOP tx to prevent decompensation.] Narrative Note: []
--- NOTE | 2018-10-07 10:00 | BH.SGPN.GN ---
Behaviors/Verbalizations/Mental Status: []Client alert and oriented, disheveled in appearance. Eye contact fair. Motor activity appropriate. Speech within normal limits. Affect constricted, mood anxious. Thoughts linear, logical, no signs of hallucinations or delusions. Client Response/Progress/Benefit: []Pt receptive to session, provided input and remained an active listener throughout discussion on stress. Pt expressed that stress can result in an increased reliance on unhealthy habits such as smoking. Pt stated she is a very anxious person and often will think of the worst case scenario which results in increased stress. She participated in identifying current stressors impacting mental health. Pt's current stressors include: financial stress, moving, determining healthy relationships, college, and no desire to work out. Indicated moving and determining healthy connections to be her most significant stressors. Appeared to benefit from gaining awareness of own current stressors and learning about the impact stress has on overall wellbeing. Progress noted in improved ability to identify impact of stressors on maintaining her mental health and wellbeing. Recommend continued IOP tx to improve emotional regulation, improve utilization of healthy coping, and prevent decompensation. Narrative Note: []
--- NOTE | 2018-10-07 11:07 | BH.SGPN.GN ---
Behaviors/Verbalizations/Mental Status: []Client alert and oriented, casually dressed and well groomed- hair down today. Eye contact good. Motor activity appropriate. Speech within normal limits. Affect full, mood euthymic. Thoughts linear, logical, no signs of hallucinations or delusions. Client Response/Progress/Benefit: []Client responded well to session, encouraging and offering strategies. Client engaged in the activity, providing encouragement. Client reported feeling frustrated and wanting to give up at times during the activity, but she was able to talk herself through it and be positive. Client shared ?communicating and changing our course of action? helped the group be successful. Client connected the activity to everyday life and shared ?it?s okay to take a break.? ?Client helped the group identify strategies to more effectively manage stress including: establishing a routine, look at what one can control, avoid making impulsive decisions, and look at it from a different perspective. Client appeared to benefit from utilizing in the moment coping skills and learning stress management strategies. Progress noted as client reports increased communication with her family. Client to continue IOP to increase mood stability and increase use of healthy coping skills.
--- NOTE | 2018-10-10 11:36 | BH.COMM ---
Communication Note - Communication with Client Communication Note: group cancelled today due to weather
--- NOTE | 2018-10-12 09:02 | BH.SGPN.GN ---
Behaviors/Verbalizations/Mental Status: [] Client alert and oriented, neatly dressed and wearing more professional attire than usual, well groomed. Eye contact good. Motor activity appropriate. Speech within normal limits. Affect congruent, mood euthymic, slightly anxious. Thoughts linear and logical, no signs of hallucinations or delusions. Client Response/Progress/Benefit: []Pt responded well to session as shown by pt listening attentively to others and sharing her feelings with group. Pt reported one of of her mental health wins is starting working for a new company and actually sticking with the new job. Pt stated in the past she would have typically given up and quit by now. Pt reported she has overcome her fear of failure and is getting outside of her comfort zone. Pt stated current stressor is being worried that because things in her life seem to be going good that something bad will happen to make the good go away. Pt seemed to benefit from support from peers. Pt to continue IOP to stabilize moods, identify and replace unhealthy thought patterns, and prevent decompensation. Narrative Note: []
--- NOTE | 2018-10-12 10:05 | BH.SGPN.GN ---
Behaviors/Verbalizations/Mental Status: [Client alert and oriented, neatly dressed and wearing more professional attire than usual, well groomed. Eye contact good. Motor activity appropriate. Speech within normal limits. Affect congruent, mood euthymic. Thoughts linear and logical, no signs of hallucinations or delusions.] Client Response/Progress/Benefit: [Client receptive of session, did well in participating in group AEB client providing insight and connecting with fellow participants throughout. Client engaged in discussion regarding what may cause a crisis and potential impacts of crisis situations on various aspects of life. Client shared that crisis can ?show a lot about how you and others deal with things during difficult times? and further indicated that crisis reveals what supports are authentic. Shared an example of the support she received during crisis prior to attending IOP group. Client benefitted from discussion on warning signs for crisis and completing the warning sign identification worksheet. She shared that personal crisis warning signs include shutting down or leaving conversations, ?going back and forth with thoughts?, and feeling as though she has ?no control?. Client progress noted in her ability to identify specific warning signs as well as identify how not managing crisis in a healthy way can impact mental health and create additional problems. Continued IOP recommended to improve coping skill application, increase communication with supports, and prevent decompensating.] Narrative Note: []
--- NOTE | 2018-10-12 11:05 | BH.SGPN.GN ---
Behaviors/Verbalizations/Mental Status: []Client alert and oriented, neatly dressed and groomed-client put effort into outfit as she was dressed up and had her hair down. Eye contact good. Motor activity appropriate. Speech within normal limits. Affect congruent, mood euthymic. Thoughts linear, logical, no signs of hallucinations or delusions. Client Response/Progress/Benefit: []Client responded well to session, positive contributions, but off topic at times. Client further processed her personal crisis warning signs and identified her three biggest warning signs. Client?s biggest warning signs are isolation, ?I don?t care attitude?, and increased impulsivity. Client shared having awareness of her warning signs will help her prevent crisis. Client helped the group identify healthy coping skills to manage her warning signs such as exercise, quotes, self-talk, HALT, and taking time to process. ?Client created a crisis kit with visuals that will remind client of healthy coping skills she can use in crisis. Client?s reported her objects will ?remind me to invest in myself and my health.? Client stated it will be important for her to avoid using unhealthy coping in crisis as client has used marijuana to cope in the past. Client appeared to benefit from creating a concrete action plan for warning signs and developing a crisis kit with reminder visuals. Progress noted in client?s self-care and outlook, but she continues to struggle with consistent mood stability and emotional regulation.
--- NOTE | 2018-10-13 08:56 | BH.COMM ---
Communication Note - Communication with Client Communication Note: This telegraphic typewriter operator chief called pt to remind her about IOP today and to ensure she was coming. Pt reported she would not be coming because of the road conditions. This telegraphic typewriter operator chief asked pt if she could make it in at 10am because road conditions could improve by then. Pt stated I already had it in my head I'm not coming. This telegraphic typewriter operator chief reminded pt of importance of making it to IOP three times a week. Pt reported she can't do it this week, but will attend IOP tomorrow.
--- NOTE | 2018-10-13 08:59 | BH.COMM_ITS ---
Communication Note - Communication with Client Communication Note: This technical document writer called pt to remind her about IOP today and to ensure she was coming. Pt reported she would not be coming because of the road conditions. This technical document writer asked pt if she could make it in at 10am because road conditions could improve by then. Pt stated I already had it in my head I'm not coming. This technical document writer reminded pt of importance of making it to IOP three times a week. Pt reported she can't do it this week, but will attend IOP tomorrow.
--- NOTE | 2018-10-17 09:00 | BH.SGPN.GN ---
Behaviors/Verbalizations/Mental Status: [ ] Client alert and oriented, disheveled appearance, unkempt. Eye contact fair, eyes looked glassy and red. Motor activity restless AEB frequent adjusting in her chair. Speech tangential, rambling. Affect labile- switching from smiling and laughing to being tearful. Mood ambivalent, depressed. Thoughts circular, difficulty paying attention, no signs of hallucinations or delusions. Client may potentially be high from marijuana. Reviewed client?s symptom tracker no risk in suicidal ideation, plan, and intent as of 10/17/18. Client Response/Progress/Benefit: []Client responded somewhat well to session, connecting with peers, but tangential and emotionally labile. Client reports feeling ?tired of not knowing how I feel and not being in control.? Client stated this weekend she moved to [place] to live with a friend which was positive and negative. Client shared ?I spent time with people which you?d think is good, but it wasn?t.? Client admitted to drinking, smoking marijuana, and inconsistently taking her medications throughout the weekend. Client acknowledged she likes to do drink and smoke, but both ?make me more emotional.? With group elicitation, client recognized that she can only open up to people and feel connected when she is under the influence which may keep client from progressing and building healthy supports. Client reported she has a hard time trusting people because of her past and begins to feel scared when good things happen ?because I?m thinking about when will the next bad thing come.? Client able to recognize that this way of thinking has caused her to lose relationships and opportunities in the past. Client also reported distorted thought patterns about her expectations for supports. Client stated, ?the one time I reach out no one wants to help me? in reference to asking a stranger for help. Client continues to report ambivalence about changing her behaviors. Client appeared to benefit from coming to [facility] today rather than isolating. Progress limited as client continues to engage in maladaptive coping skills, reports medication noncompliance, and continues to experience mood instability.
--- NOTE | 2018-10-17 10:12 | BH.SGPN.GN ---
Behaviors/Verbalizations/Mental Status: [Client orientation unknown as client appearing to be under the influence of marijuana AEB struggling with focus and appearing to have difficulties retaining information, glossy eyes, tangential and rambling speech including comments of ?don?t do weed, guys?. Disheveled, appearing unbathed. Eye contact fair to good often scanning room, staring blankly. Motor activity erratic. Speech often delayed or slowed. Affect incongruent and labial AEB laughing at inappropriate times and crying sporadically, mood anxious, distracted. Thoughts appearing preoccupied, reporting thoughts associated with paranoia. ] Client Response/Progress/Benefit: [Client willing to attend session, though appearing to struggle with focus and distracted by self/thoughts throughout. This was evidenced by Client appearing to have difficulty retaining information and often making comments off topic. With redirection and guidance, client able to identify benefits of reaching out and building social supports as well as barriers faced in doing so. Client indicated supports can make us feel like we can get through difficult times, but indicated currently struggling to identify healthy supports in her own life. Client indicated that one barrier to tapping into supports is ?not knowing who?s real or who I can trust? and ?not wanting to have to ask for help?. Client receptive of group challenging her on thoughts that accepting help makes you weak, however indicated struggling to believe that help is okay. Client willing to engage in the activity, though struggling to remain focused and often distracted herself/group with off-topic comments which impacted ability to effectively working together to reach shared goal in given timeframe. Client appeared to benefit from making connections between barriers and solutions experienced in activity with those related to utilizing and developing strong social supports. Noting that not knowing how to communicate and trusting others to communicate has been a barrier to her in the past. Recommended continued IOP tx to further improve effective communication, prevent reliance on maladaptive coping skills in order to feel comfortable in doing so, and improve use of supports.] Narrative Note: []
--- NOTE | 2018-10-17 11:15 | BH.SGPN.GN ---
Behaviors/Verbalizations/Mental Status: [Client continued to appear under the influence of marijuana AEB ongoing issues with focus and appearing to have difficulties retaining information, glossy eyes, tangential and rambling speech including comments related to recent increased substance use. Disheveled, appearing unbathed. Eye contact fair to good often scanning room, staring blankly. Motor activity erratic. Speech often delayed or slowed. Affect labial, crying sporadically, mood anxious, distracted. Thoughts appearing preoccupied, reporting thoughts associated with paranoia. ] Client Response/Progress/Benefit: [Pt providing input and ideas to discussion, at times struggling to listen to peers before responding and interrupting group members. Pt contributed more to discussion about the different types of support and benefits different types of support can provide. Pt reported the type of support she would like to improve is emotional support. Pt reported this type of support will be beneficial because will help her maintain positive and decrease isolation. Pt identified 3 steps can take to start improving this type of support is making list of healthy supports, reminding herself that there are healthy supports in her life and remembering to seek them out, and looking into a therapy dog program. Pt seemed to benefit from identifying a type of support she would like to improve upon to strengthen and broaden her support network. Pt to continue IOP level of care to improve self-esteem, increase use of healthy coping, and prevent decompensation.] Narrative Note: []
--- NOTE | 2018-10-17 13:13 | BH.MDN ---
Multi-Disciplinary Note - Note 30-min Individual Time Started:: 12:10 Date: 10/17/18 Purpose of session/treatment goals addressed:: The purpose of this session was to manage current mood state and identify healthy strategies to manage symptoms today. Another goal was to discuss IOP expectations and address client's marijuana use in the mornings before coming to [facility]. Eye Contact:: Good Motor Activity:: Appropriate Appearance:: Disheveled Speech:: Rambling Mood:: Anxious, Depressed Affect:: Congruent - tearful throughout session Thoughts:: Circular Staff Interventions:: Therapist used active listening to explore client's mood state and triggers. Therapist provided client a safe space to process emotions and thoughts. Therapist gently challenged client's distorted thought patterns that reinforce anxiety, depression, and mistrust in supports. Therapist helped client reframe and replace current negative thoughts. Therapist and client discussed client's marijuana use and therapist encouraged client to be sober when she comes to [facility]. Therpist reminded client of IOP expectations regarding attendance and substance use. Therapist provided psychoeducation and helped client set a self-care goal for today. Therapist to follow up with client's regular IOP therapist regarding session. Client Response:: Client responded well to session, tearful throughout. Client stated she is struggling right now because she continues to feel torn and conflicted about everything. Client shares feeling torn about [facility], her move to [place], and her supports. Client acknowledged that she is experiencing cognitive distortions that keep her feeling stuck and reinforce anxiety. Client stated she jumps to worst case scenarios, does not open up to people, and avoids doing things because of fear and negative past experiences. Client stated she also expects others to know her needs which has caused client to feel disappointed and hurt by supports in the past. Client receptive to talking about the reasons for certain emotions and how to combat distorted thoughts. Client able to challenge a current negative thought with therapist's assistance. Client acknowledged that she tends to isolate and not engage in positive activities when she feels this way, which further reinforces her symptoms and negative thoughts. Client receptive to concept of behavioral activation to improve mood. Client open to setting a self-care goal today and was receptive to not smoking when she leaves [facility]. Risks/Concerns:: Client denies any suicidal or homicidal ideation, plan, or intent as of 10/17/18. Client reports ability to maintain safety. Progress Toward Goals/Plan:: Progress limited as client's attendance and use of unhealthy coping skills continue to be barriers to treatment. Client receptive to creating a more consistent IOP routine and practicing healthy coping skills today. Client to continue IOP to prevent decompensation, increase mood stability, and reduce maladaptive coping skills. Client reports understanding IOP expectations for attendance and substance use. Therapist to follow up with client's regular IOP therapist. Time Stopped:: 12:35
--- NOTE | 2018-10-17 13:21 | BH.MDN_ITS ---
Multi-Disciplinary Note - Note 30-min Individual Time Started:: 12:10 Date: 10/17/18 Purpose of session/treatment goals addressed:: The purpose of this session was to manage current mood state and identify healthy strategies to manage symptoms today. Another goal was to discuss IOP expectations and address client's marijuana use in the mornings before coming to [facility]. Eye Contact:: Good Motor Activity:: Appropriate Appearance:: Disheveled Speech:: Rambling Mood:: Anxious, Depressed Affect:: Congruent - tearful throughout session Thoughts:: Circular Staff Interventions:: Therapist used active listening to explore client's mood state and triggers. Therapist provided client a safe space to process emotions and thoughts. Therapist gently challenged client's distorted thought patterns that reinforce anxiety, depression, and mistrust in supports. Therapist helped client reframe and replace current negative thoughts. Therapist and client discussed client's marijuana use and therapist encouraged client to be sober when she comes to [facility]. Therpist reminded client of [facility] expectations regarding attendance and substance use. Therapist provided psychoeducation and helped client set a self-care goal for today. Therapist to follow up with [facility] regarding session. Client Response:: Client responded well to session, tearful throughout. Client stated she is struggling right now because she continues to feel torn and conflicted about everything. Client shares feeling torn about [facility], her move to [place], and her supports. Client acknowledged that she is experiencing cognitive distortions that keep her feeling stuck and reinforce anxiety. Client stated she jumps to worst case scenarios, does not open up to people, and avoids doing things because of fear and negative past experiences. Client stated she also expects others to know her needs which has caused client to feel disappointed and hurt by supports in the past. Client receptive to talking about the reasons for certain emotions and how to combat distorted thoughts. Client able to challenge a current negative thought with therapist's assistance. Client acknowledged that she tends to isolate and not engage in positive activities when she feels this way, which further reinforces her symptoms and negative thoughts. Client receptive to concept of behavioral activation to improve mood. Client open to setting a self-care goal today and was receptive to not smoking when she leaves [facility]. Risks/Concerns:: Client denies any suicidal or homicidal ideation, plan, or intent as of 10/17/18. Client reports ability to maintain safety. Progress Toward Goals/Plan:: Progress limited as client's attendance and use of unhealthy coping skills continue to be barriers to treatment. Client receptive to creating a more consistent IOP routine and practicing healthy coping skills today. Client to continue IOP to prevent decompensation, increase mood stability, and reduce maladaptive coping skills. Client reports understanding IOP expectations for attendance and substance use. Therapist to follow up with client's regular IOP therapist. Time Stopped:: 12:35
--- NOTE | 2018-10-18 10:12 | BH.SGPN.GN ---
Behaviors/Verbalizations/Mental Status: []Client alert and oriented, disheveled appearance, hygiene poor- hair appeared unwashed. Eye contact good. Motor activity good. Speech tangential. Affect congruent, mood anxious and irritable. Client's affect and mood improved from yesterdays group. Client declined smoking marijuana before coming to group today which is likely the reason for her shift in affect and mood. Thoughts linear, logical, no signs of hallucinations or delusions. Client Response/Progress/Benefit: []Client responded somewhat well to session, engaged in discussion, but reporting wanting to give up during activity. Client appeared to connect with the quote sharing ?I want to move on with life. I don?t want to be triggered.? Client reported belief she needs trauma work to help her more effectively process and move on from the past. Client stated it is important to make changes in life to improve one?s mental health because ?if not we feel bad all the time.? Client reported barriers such as fear of failure, projection, and lack of trust keep people from making positive change. Client identified three small changes she would like to make to improve her mental health. Client?s changes were to take steps to getting a therapy dog, increase communication with healthy supports, and become more financially stable. Client identified barriers keeping him from making those changes to be: feeling overwhelmed, lack of trust, misperception, lack of knowledge, and not asking the right people for help. Client engaged in the activity and when the group struggled client reported ?okay let?s just be done.? Client appeared to benefit from gaining awareness of changes that would improve her mental health and the barriers keeping client stuck. Progress limited as client continues to struggle with consistently implementing healthy coping skills and she continues to demonstrate avoidance behaviors when faced with challenges.
--- NOTE | 2018-10-18 11:14 | BH.SGPN.GN ---
Behaviors/Verbalizations/Mental Status: []Client alert and oriented, casual dress, hygiene good. Eye contact good. Motor activity appropriate. Speech normal range for tone and frequency. Affect constricted, mood euthymic. Thoughts linear, logical, no signs of hallucinations or delusions. Client Response/Progress/Benefit: []]Pt was an engaged participant, did well to participate in group activity and provided insight and input to discussion at times. Worked with group members to identify connections between activity and strategies for overcoming barriers to making changes. Identified a specific change she would like to make for her mental health, barriers to making that change, and a SMART goal to reach that change. Shared she would like to improve her financial stability which she stated will decrease her anxiety and increase independence. Pt stated her goal is to take time to identify her required bills and set a budget so she doesn't impulsively overspend. Benefited from group as she was able to identify strategies to overcome barriers to change and create a plan for implementing one small change promoting personal growth. Pt to continue IOP level of care to improve mood stability, increase consistent application of healthy coping skills and prevent decompensation. Narrative Note: []
--- NOTE | 2018-10-18 16:16 | BH.MDN_ITS ---
Multi-Disciplinary Note - Note 60-min Individual Time Started:: 12:01 Date: 10/18/18 Purpose of session/treatment goals addressed:: Purpose of session was to assess pt's current symptoms and stressors. Also discussed therapy interferring behaviors. Identified goals for today. Eye Contact:: Fair Motor Activity:: Restless Appearance:: Disheveled Speech:: Tangential, Rambling Mood:: Anxious, Irritable, Depressed Affect:: Labile Thoughts:: Racing, Flight of ideas, No evidence of hallucinations/delusions noted Staff Interventions:: Therapist used open ended questions to elicit pt's current symptoms and stressors. Therapist inquired what is hindering pt's progress. Therapist challenged pt about poor attendance and coming to group under influence of substances as possible barriers to progress. Therapist assisted pt with understanding how use of substances while at therapy is unhelpful to her progress. Therapist reiterated importance of pt being sober while attending therapy and informed pt if came to program under influence of substances her shonda atment would be reasessed to see if pt needs different type of mental health care. Therapist assisted pt with identifying goals for today to keep pt motivated and focused on moving foward. Client Response:: Pt reported she is all over the place. When asked what could be contributing to pt not making progress she identified triggers, but unable to note anything else. When challenged about her poor attendance and coming to IOP under influence of substances pt initially became defensive as evidenced by pt defending her decision. Pt eventually admitted she was being defensive and through assistance by therapist she recognized she can't address her underlying issues if she is not sober. Pt stated her marijuana use does help her open up to others, but reported she does not want to rely on a substance to help her be more open and honest with others. Pt agreeable with plan to not arrive to IOP under influence of any substances. Pt mood labile throughout session, quickly went from one emotin to the next and tearful throughout several times throughout session. Pt struggled with discussing one topic, often jumped to a different topic without no apparent connection to the first topic. Pt reported she was kicked out of her apartment just moved into, but stated she doesn't know why because she told her roommate not to tell her. Pt stated she doesn't care, however was speculating reasons she might have been kicked out. Pt reported she is struggling because she doesn't feel like the supports she had are actually healthy for her. Pt stated also being stressed she will likely need to move back in with her mom which pt reported will result in her mom saying I told you so, which pt reported is upsetting. Pt reported today she will contact job and family services to ask questions about housing help. Pt stated she will also work on her vision board to give her a foucs on goals for her future. Pt agreeable to complete small goals. Risks/Concerns:: Pt denies suicidal thoughts, plan or intention to date. Progress Toward Goals/Plan:: Pt progress minimal due to pt's poor attendance, not generalizing skills learned, and use of unhealthy coping skills. Pt verbalizes motivation to get better, however has not shown effort into working for what she wants. Pt to continue IOP level of care to stabilize mood, increase healthy coping, and prevent decompensation. Time Stopped:: 13:00
--- NOTE | 2018-10-20 09:10 | BH.SGPN.GN ---
Behaviors/Verbalizations/Mental Status: [Eye contact is good. Motor activity WNL. Appearance casual and comfortable. Speech Appropriate rate and tone. Mood euthymic. Affect is congruent. Thoughts linear and logical. No evidence of delusions or hallucinations. Reviewed daily check in sheet and no reports of suicidal ideations or intent] Client Response/Progress/Benefit: [Client receptive of session, providing input and support to the group. Indicated current mood as ?hopeful? which client attributes to getting back on a consistent and healthy routine including attending group and consistently taking her psychiatric medication. Client shared that her mental health ?wins? or positives include managing her emotions while talking with her mother this morning and making a conscious effort to implement effective communication skills in doing so. Client described another mental health positive as setting a goal of using healthy ?unbiased support? to improve her financial situation, and explained plans to seek appiah assistance from [employer] today. 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 Client benefitted from identifying healthy skills she may use to cope with anxiety rather than usual unhealthy means of coping. Progress noted in client ability to identify healthy skills of making a ?vision board? and using grounding techniques. Additional IOP tx to promoting continued use of healthy emotion regulation and distress tolerance skills, as well as prevent decompensation.] Narrative Note: []
--- NOTE | 2018-10-20 10:15 | BH.SGPN.GN ---
Behaviors/Verbalizations/Mental Status: []Client alert and oriented, disheveled appearance. Eye contact good. Motor activity restless. Speech normal tone and frequency, but client off topic at times. Affect congruent, mood anxious. Client reported I'm stuck in my head and appeared to have difficulty concentrating on the activity and discussion. no signs of hallucinations or delusions Client Response/Progress/Benefit: []Client responded well to session, active participant, but off topic at times. Client connected with the quote sharing, ?you have two choices when you fail, fail again or try something different.? Client stated that failure can lead to negative thinking, disappointment, and anxiety. Client shared sometimes people define success as living up to other?s expectations, but it is important for ?us to define success for ourselves.? Client reported her mind gets negative after a failure. Client able to identify that fear of failure can have negative impacts on one?s mental health. Client stated if a person fears failing are less likely to seek out positive opportunities and give up. Client engaged in the activity and was observably struggling with memory. Client stated she was also experiencing self-doubt and anxiety during the activity. The group provided client with verbal support and direction, which helped client be more successful. Client stated ?progress isn?t linear? which helps client remember she can overcome failure. Client reported healthy supports and changing thinking can make it easier to overcome failure. Client appeared to benefit from increasing awareness of how fear of failure can impact mental health progress. Progress noted as client appears to have stopped smoking marijuana before coming to [facility]. However, client continues to struggle with emotional dysregulation and consistent application of healthy coping skills.
--- NOTE | 2018-10-20 11:25 | BH.SGPN.GN ---
Behaviors/Verbalizations/Mental Status: [] Eye contact is good. Motor activity is appropriate. Appearance is disheveled. Speech is Appropriate. Mood is depressed. Affect is congruent. Thoughts are linear and logical. No evidence of psychosis. Client Response/Progress/Benefit: [] Pt was an active participant in group activity and discussion. Worked with the group to identify skills or strategies that help reduce fear of failure in group experiential activity. Group identified support from others, encouragement, viewing mistakes or failure as a lesson, patience, communication, and confidence in managing negative emotions as being strategies which can help manage failure. Pt completed worksheet and answered questions which included;I would like to change my definition of failure by viewing it as. . ., Fear of failure impacted me by ..., Past failures have taught me ..., Fear of failing is currently holding me back from ...?, and Things I can say or do to help me overcome fear of failing .... Pt identified that one of her biggest fears is trusting others specifically when it come to relationships. Benefited from group as pt was able to recognize how fear of failure has impacted her life as well as some strategies to combat fear of failure. Will continue in IOP to prevent decompensation and stabilize mood. Narrative Note: []
== END 2018-10-20 23:59 ==
LOC: BHIOP 10:28
PROVIDERS: Family Provider Internal Medicine; PCP Internal Medicine; Referring Provider Psychiatry & Neurology Psychiatry; Visit Provider Psychiatry & Neurology Psychiatry
DX: F34.1 Dysthymic disorder (principal); F43.22 Adjustment disorder with anxiety; F12.90 Cannabis use, unspecified, uncomplicated; F60.9 Personality disorder, unspecified
CPT/HCPCS: H0035; 90832; 90837; 90853

== ENCOUNTER 2018-10-24 09:00 | Outpatient (RCR) | payer OTHER, SELFPAY ==
--- NOTE | 2018-10-24 09:05 | BH.SGPN.GN ---
Behaviors/Verbalizations/Mental Status: [] Eye contact is good. Motor activity is appropriate. Appearance is casual. Speech is Appropriate. Mood is depressed. Affect is flat. Tearful at times. Thoughts are linear and logical. No evidence of psychosis. Reviewed daily check in sheet and no reports of suicidal ideations or intent. Client Response/Progress/Benefit: [] Pt was an active participant in group discussion. Pt reported that her emotions was positive and stated she was feeling really good today, however during her check-in began to cry and report that she couldn't talk more about a certain stressor. She stated that she began a 30 day detox and hopes to transition to a healthier lifestyle. She discussed further the negative effects a a recent relationship and how it led to numerous unhealthy coping skills which have impacted her life and mental health. Reports some self-calming and distraction strategies which she feels may border on OCD stating that she will wash her face 5x daily. She views this as self-care. Benefited from group support and encouragement. Limited progress. Pt''s emotions were liable today and mood was incongruent with report. Will continue in IOP to stabilize mood, prevent decompensation, and increase functioning. Narrative Note: []
--- NOTE | 2018-10-24 09:15 | BH.COMM ---
Communication Note - Communication with Client Communication Note: Pt called and cancelled attending IOP on 10/21/18 because she was feeling good and wanted to move her belongings out of her apartment today. Pt reported she would attend IOP on 10/24/18.
--- NOTE | 2018-10-24 10:07 | BH.SGPN.GN ---
Behaviors/Verbalizations/Mental Status: [Client alert and orient x3, eye contact fair, appearance casual, grooming appearing to be unattended to AEB client hair unwashed and appearing to be unbathed, motor activity WNL, speech quiet throughout discussion; however, becoming hostile and defensive in activity. Client mood labile at times cursing or crying during activity, affect incongruent with mood as client reports ?feeling really good today?. Thoughts remained linear and intact some evidence of thought blocking, no evidence of delusion or hallucinations. ] Client Response/Progress/Benefit: [Client receptive of session and semi-engaged throughout. Client provided limited insight on the topic of ?managing emotions?, though remained engaged in discussion AEB nodding head or taking notes throughout. Shared connecting with discussion on how unmanaged emotions and dysregulation can lead to increased distorted thoughts as well as potential to self-sabotage. Client benefitted from challenging herself to practice emotion regulation skills during the activity portion despite becoming significantly frustrated and stressed out when unable to complete the activity as quickly as anticipated. Progress noted in Client?s ability to utilize group support and work through frustrations without giving up. Client continued to struggle with significant mood instability and is recommended continued IOP tx to prevent decompensation, increase consistent emotion regulation, and promote use of healthy means of coping.] Narrative Note: []
--- NOTE | 2018-10-24 11:04 | BH.TPR ---
Treatment Plan Review Date of Admission:: 09/22/18 Date of Treatment Plan Review:: 10/24/18 Admitting Diagnoses:: [place] I: Persistent depressive disorder (F 34.1); JOE; chronic adjustment disorder with anxiety; cannabis use disorder. [place] II: Underlying personality disorder. [place] III: Healthy Current Diagnoses:: [place] I: Persistent depressive disorder (F 34.1); JOE; chronic adjustment disorder with anxiety; cannabis use disorder. [place] II: Underlying personality disorder. [place] III: Healthy Patient's Response to Treatment:: Client's response to treatment has been poor AEB multiple cancels to IOP sessions, poor follow through on homework discussed, and ambivalence about wanting to make changes that could benefit mental health. Status of Current Problems and Symptoms: Ongoing problems. Client continuing to struggle with interpersonal relationship issues, labile mood, continuing to utilize marijuana as her coping skill, not following through with homework to practice healthy skills, and poor daily functioning. Team is starting to observe increased paranoia and delusional thought. Client not wanting to consider her marijuana use could be contributing to increased paranoia. Problem #1 Problem Name:: Depression Status of Goals:: obj 1 - not met. Client can identify a couple healthy coping skills like behavior activation and creating small goals. Client struggles with staying focused during individual sessions and has cancelled on days there was a planned individual session. obj 2 - unable to get DSM 5 scores. However, objective not met due to client continuing to have poor daily functioning. Team Recommendations:: Team recommends talking with client about what will help her get to IOP more consistently, motivational interviewing to help client move towards decision to stop marijuana use, and continue to build healthy coping skills. Problem #2 Problem Name:: Anxiety Status of Goals:: obj 1 - not met. Client can identify a couple healthy calming skills like belly breathing and grounding. Client struggles with staying focused during individual sessions and has cancelled on days there was a planned individual session. Client also struggles with applying skills outside treatment environment. obj 2 - unable to get DSM 5 scores. However, objective not met due to client continuing to have poor daily functioning and increased anxiety. Team Recommendations:: Team recommends talking with client about what will help her get to IOP more consistently, motivational interviewing to help client move towards decision to stop marijuana use, and continue to build healthy coping skills.
--- NOTE | 2018-10-24 11:20 | BH.SGPN.GN ---
Behaviors/Verbalizations/Mental Status: []Client alert and oriented, disheveled appearance. Eye contact good. Motor activity appropriate. Speech within normal limits. Affect incongruent AEB client smiling while reporting mood dysregulation today, mood calm after verbal processing. Thoughts linear, logical, no signs of hallucinations or delusions. Client Response/Progress/Benefit: []Client responded somewhat well to session, appeared to have a hard time staying focused. Client helped the group further process barriers and solutions from the activity. Client shared communication ?is just really hard for me? and she also struggles with not being in control. Client acknowledged that asking for help can be viewed as strength. Client appeared to connect with the different zones of alertness and the emotions connected to each. Client shared once she feels overwhelmed ?the negative talk starts, and I make assumptions.? Client agreed with peers that it is important to have awareness of all the zones so one can use healthy coping skills. Client able to identify healthy coping skills for each zone. Client reported belief she is in the ?green? zone today despite feeling frustrated and overwhelmed in second group. Client shared ?I?m calm now and I?ll do anything to stay this way.? Client?s goal for today is to go for a walk with a positive support person to prevent client from decompensating. Client appeared to benefit from gaining self-awareness and setting a goal that will help client regulate emotions. Progress variable as client continues to present with limited insight to her personal warning signs and triggers. This makes it difficult for client to utilize healthy coping skills to manage emotions more effectively. Client to continue IOP to prevent decompensation, increase emotional regulation, and promote mood stability.
--- NOTE | 2018-10-25 09:05 | BH.SGPN.GN ---
Behaviors/Verbalizations/Mental Status: []Client alert and oriented, disheveled appearance, hygiene poor. Eye contact fair. Motor activity appropriate. Speech soft. Affect congruent to mood-tearful, mood anxious, dysthymic. Thoughts remained logical and linear- some evidence of thought blocking as client struggled to communicate her thoughts to group. no signs of hallucinations or delusions. Reviewed client?s symptom tracker no risk in suicidal ideation, plan, and intent as of 10/25/18. Client's symptom tracker scores for anxiety and depression appeared incongruent to client's affect and mood. Client Response/Progress/Benefit: []Client responded somewhat well to session, declining to elaborate on stressors, but receptive to supportive feedback from peers. Client reported her emotion today is ?I?m just not feeling well today.? Client able to clarify that she is not feeling well physically and mentally. Client was tearful throughout and stated, ?I don?t really want to talk about it.? Client unable to identify what she needs today that would help client regulate emotions and manage mood. Therapist and peers offered emotional support and ideas to help client cope. Client reminded to pay attention to her warning signs and communicate with IOP staff should client need to talk or use in the moment coping skills. Client appeared to benefit from emotional support provided by peers and from reviewing healthy coping skills. Progress variable based on the day and week as client continues to endorse mood dysregulation, negative thinking, and difficulty managing symptoms. Client also continues to struggle with communicating her needs as she has reported in the past she assumes others should know how to help her. However, client has shown progress this week with more consistent attendance. Client to continue IOP to prevent further decompensation and increase emotional regulation.
--- NOTE | 2018-10-25 10:10 | BH.SGPN.GN ---
Behaviors/Verbalizations/Mental Status: [Client alert and oriented, casually dressed wearing lounge attire, appearing disheveled AEB hair unkempt and grooming untended to. Eye contact fair to good. Motor activity appropriate. Speech within normal limits. Affect congruent to mood, mood anxious, irritable, dysthymic. Thoughts linear, continuing to display evidence of preoccupied thoughts or thought blocking AEB difficulties in comprehending or processing information and responses incongruent to discussion. no apparent hallucinations or delusions. ] Client Response/Progress/Benefit: [Client receptive of session, engaged in discussion though providing limited input. Client took notes throughout and nodded when connecting with other participants input. Client shared coping means ?to manage emotions despite what?s going on. Client benefitted from discussion reviewing how coping skills develop and differences in internal vs. external coping. Client engaged in the activity and did well to use healthy coping of reframing and positive self-talk to prevent from giving up when becoming frustrated. Client responded well to support of the group environment. She connected aspects of the activity to coping in daily life as she noted her coping base is not currently strong enough to support her when stressors arise, but by adding healthier internal and external supports she would be more capable of managing difficult situations and regulating her emotions. Progress in client application of coping skills in the moment; however continues to report use of maladaptive coping when outside the group environment. Client to continue IOP to prevent decompensation and maintain safety, as well as continue to promote healthy change behaviors. ] Narrative Note: []
--- NOTE | 2018-10-27 10:14 | BH.COMM ---
Communication Note - Communication with Client Communication Note: Pt called to cancel attending IOP because she had other things she needed to do. Pt reported she attend IOP tomorrow.
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
--- NOTE | 2018-10-31 11:30 | BH.COMM ---
Communication Note - Communication with Client Communication Note: Client called to cancel attending IOP today because didn't want to come in so she could get other things done. Client reported she would attend IOP tomorrow.
--- NOTE | 2018-10-31 16:18 | BH.COMM ---
Communication Note - Communication with Client Communication Note: This headline writer contacted client's mother (Malini)to check-in on how client did over the weekend and to ensure client is taking her new medication. Malini reported she attempted to encourage client to go inpatient to help stabilize her, but Malini reported client became agitated so Malini backed down from conversation. Malini reported she encouraged client to attend IOP today, but client became verbally aggressive towards Malini. Malini shared to her knowledge client is taking the new medication. Malini reported she would like to get client established with an outpatient psychiatrist, this headline writer will provide psychiatry options for client.
--- NOTE | 2018-10-31 16:23 | BH.COMM ---
Communication Note - Communication with Client Communication Note: This ad writer planned to meet individually with client today, however client cancelled attending today. This ad writer planned to encourage client to switch to PHP level of care if client still does not want to go inpatient because the treatment team believes a higher level of care would be beneficial for client.
--- NOTE | 2018-11-01 11:28 | BH.COMM ---
Communication Note - Communication with Client Communication Note: Client no show/no called. This typewriter ribbon winder attempted to call client to check-in, could not leave voicemail because voicemail box is full. This typewriter ribbon winder called client's emergency contact (client's mother) and client's mother reported client did not come home last night, but client did text her this morning telling mom she was okay but did not go to counseling.
--- NOTE | 2018-11-01 16:22 | BH.COMM_ITS ---
Communication Note - Communication with Client Communication Note: This contract technical writer contacted client's mother (Malini)to check-in on how client did over the weekend and to ensure client is taking her new medication. Malini reported she attempted to encourage client to go inpatient to help stabilize her, but Malini reported client became agitated so Malini backed down from conversation. Malini reported she encouraged client to attend IOP today, but client became verbally aggressive towards Malini. Malini shared to her knowledge client is taking the new medication. Malini reported she would like to get client established with an outpatient psychiatrist, this contract technical writer will provide psychiatry options for client.
--- NOTE | 2018-11-01 16:24 | BH.COMM_ITS ---
Communication Note - Communication with Client Communication Note: This account underwriter planned to meet individually with client today, however client cancelled attending today. This account underwriter planned to encourage client to switch to PHP level of care if client still does not want to go inpatient because the treatment team believes a higher level of care would be beneficial for client.
== END 2018-11-17 23:59 | disposition home or self-care (01) ==
LOC: BHIOP 09:00
PROVIDERS: Family Provider Internal Medicine; PCP Internal Medicine; Referring Provider Psychiatry & Neurology Psychiatry; Visit Provider Psychiatry & Neurology Psychiatry
DX: F23 Brief psychotic disorder (principal); F32.89 Other specified depressive episodes; F41.1 Generalized anxiety disorder; F12.10 Cannabis abuse, uncomplicated
CPT/HCPCS: H0035; 90837; 90853

== ENCOUNTER → 2020-04-24 10:14 | Outpatient (CLI) | payer OTHER, SELFPAY | PROVIDERS: PCP Internal Medicine | DX: Z20.828 Contact with and (suspected) exposure to other viral communicable diseases (principal) | CPT/HCPCS: 87635; 94799; U0003 ==